=== PATIENT | female | born 1980 | race Caucasian/White ===

== ENCOUNTER 2019-09-28 08:45 | Inpatient (IN) | payer OTHER ==
[2019-09-28] MEDS: ACETAMINOPHEN 325 MG TABLET (FP) PO PRN (10:00)
[2019-09-28] MEDS ORDERED: BETAMET ACET/BETAMET NA PH 30 MG/5 ML VIAL IM ONE (10:08)
[2019-09-28] MEDS ORDERED: MAGNESIUM SULFATE 20GM/500ML - 20 GM/500 ML INFUS.BAG IV SCH (10:15)
[2019-09-28] MEDS ORDERED: MAGNESIUM 4GM/H20 - 4 GM/100 ML IVPB IVPB SCH (10:15)
--- NOTE | 2019-09-28 10:21 | HP ---
Past Medical History - Admission Chief Complaint: contractions. History of Present Illness: patient presents to L&D c/o contractions today. no leaking or bleeding. no MONREAL, visual disturbances, was seen in clinic at [facility] yest and states being followed for elev BP past few weeks. called and spoke with MFM who recalls patients also had proteinuria and platelets in 160s range, received steroids 2 weeks or so ago given history of PTD ( due to preeclampsia?). complete chart not available at this time as clinic building closed for holiday. Nurse stated copy given to pt. yesterday, but pt. states does not have. History Source: Patient Limitations to Obtaining History: Language Barrier - Past Medical History ...: 7 ...Para: 1 ...: 1 ...Spon : 4 ...LMP: 01/21/19 ... Weeks Gestation by Dates: 35.5 ...EDC by Dates: 10/28/19 ...EDC by Sono: 11/04/19 Additional Medical History: pr. was covid pos earlier this preg. retest now. - Past Surgical History Hx Myomectomy: No Hx Transabdominal Cerclage: No - Smoking History Have you smoked in the past 12 months: No - Alcohol/Substance Use Hx Alcohol Use: No History of Substance Use: reports: None Home Medications - Allergies Allergies/Adverse Reactions: Allergies Allergy/AdvReac Type Severity Reaction Status Date / Time almond Allergy Severe Rash Verified 09/28/19 12:12 No Known Drug Allergies Allergy Verified 09/28/19 12:12 - Home Medications Home Medications: Ambulatory Orders Aspirin [ASA -] 81 mg PO DAILY 09/24/19 Folic Acid 1 mg PO DAILY 09/24/19 Pnv No.95/Ferrous Fum/Folic AC [ Vitamin Tablet] 1 each PO DAILY 09/24/19 Progesterone,Micronized [Prometrium] 400 mg PO DAILY 09/24/19 Physical Exam - Maternity Vital Signs: Vital Signs Temperature 98.4 F 09/28/19 09:25 Pulse Rate 84 09/28/19 09:25 Respiratory Rate 18 09/28/19 09:25 Blood Pressure 152/84 09/28/19 09:25 O2 Sat by Pulse Oximetry (%) - Abdominal Exam/OB Number of Fetuses: Single Presentation: Vertex Contractions: Yes Regularity: Irregular Intensity: Moderate Monitor Mode: External Heart Rate (range): 140 Category: I Accelerations: Uniform Decelerations: None - Vaginal Exam/OB Vaginal Bleeding: No Dilatation (cm): 1 Effacement (%): 30 Presentation: Vertex/Position Station: -3 - Physical Exam Edema: No Deep Tendon Reflex Grade: Normal +2 Problem List - Problems (1) uterine contractions in third trimester, antepartum Code(s): O47.03 - FALSE LABOR BEFORE 37 COMPLETED WEEKS OF GEST, THIRD TRI (2) Pre-eclampsia Code(s): O14.90 - UNSPECIFIED PRE-ECLAMPSIA, UNSPECIFIED TRIMESTER (3) Pre-eclampsia during in third trimester, antepartum Code(s): O14.93 - UNSPECIFIED PRE-ECLAMPSIA, THIRD TRIMESTER Assessment/Plan iup at 35 weeks present with contractions. noted to have elevated BP per history and high BP noted in triage here. will admit to L&D, start magnesium sulfate and antihtn meds as needed. will give steroids as pt. uncertain as to history and record not available. close monitoring. labs plan for delivery once stabilized case d/w mfm at [facility] who had information from recollection, but complete chart not available due to holiday. agreed w plan for admission and delivery
[2019-09-28] MEDS ORDERED: LABETALOL HCL 5 MG/1 ML (100MG/20 ML VIAL) IVPUSH ONE (10:23)
[2019-09-28 11:07] LABS: BASO % 0.3 % (0-2.0); EOS % 0.2 % (0-4.5); HEMATOCRIT 41.1 % (32.4-45.2); HEMOGLOBIN 13.7 GM/dL (10.7-15.3); LYMPH % 9.5 % (8-40); MCH 31.4 pg (25.7-33.7); MCHC 33.3 g/dl (32.0-36.0); MEAN CELL VOLUME 94.5 fl (80-96); MEAN PLT VOLUME 11.5 fl (7.5-11.1); PLATELET COUNT 81 K/MM3 (134-434); RBC 4.35 M/mm3 (3.60-5.2); RDW 15.9 % (11.6-15.6); WHITE BLOOD COUNT 10.9 K/mm3 (4.0-10.0)
[2019-09-28 11:15] LABS: INR 0.81 (0.83-1.09); PROTHROMBIN TIME (PATIENT) 9.5 SEC (9.7-13.0)
[2019-09-28 11:18] LABS: ACTIVATED PTT 27.4 SECONDS (25.2-36.5)
[2019-09-28 11:34] VITALS: BMI 33.5
[2019-09-28 11:35] LABS: ALBUMIN 2.2 g/dl (3.4-5.0); BLOOD UREA NITROGEN 16.9 mg/dL (7-18); CREATININE 0.6 mg/dL (0.55-1.3); POTASSIUM 3.6 mmol/L (3.5-5.1); TOT PROT 5.6 g/dl (6.4-8.2); URIC ACID 7.1 mg/dL (2.6-7.2)
[2019-09-28] MEDS: DEXTROSE 5%-LACTATED RINGERS 1,000 ML IV SCH (12:00)
[2019-09-28] MEDS ORDERED: DINOPROSTONE 10 MG VAGINAL SUPPOSITORY VG ONE (12:12)
[2019-09-28 12:26] LABS: EPI CELLS >36 /uL (0-25.1); HYALINE CASTS 13 /uL (0-3.1); URINE APPEARANCE CLEAR; URINE BACTERIA 29 /uL (0-1359); URINE BILIRUBIN NEGATIVE (NEGATIVE); URINE COLOR DK YELLOW; URINE GLUCOSE (UA) NEGATIVE (NEGATIVE); URINE KETONE NEGATIVE (NEGATIVE); URINE LEUK ESTERASE NEGATIVE (NEGATIVE); URINE NITRITE NEGATIVE (NEGATIVE); URINE PROTEIN 3+ (NEGATIVE); URINE RBC 3 /uL (0-23.9); URINE WBC 15 /uL (0-25.8)
[2019-09-28] MEDS ORDERED: LABETALOL HCL 100 MG TABLET (FP) PO SCH (13:00)
[2019-09-28] MEDS ORDERED: LABETALOL HCL 100 MG TABLET (FP) ONE ×2 (13:09→13:19)
--- NOTE | 2019-09-28 15:15 | PN ---
Progress Note (short form) - Note Progress Note: pt. without complaints. resting comfortably vs : BP stable in 140/80s range chest : cta b/l, Nl S1S2 abd: soft, nt, gravid ve: def. cervidil in place ext: no calf tenderness, b/l. DTR 1+/1+ teds and venodynes in place vickers: clear uo : ~100 ml/hr per nurse a/p iup at 35 weeks with severe preeclampsia stable on MgSO4 and po labetalol start prophylactic abx when active labor or rom. cont iol and close monitoring case d/w thinner sprayer sign out to MD rehabilitation liaison. Problem List - Problems (1) uterine contractions in third trimester, antepartum Code(s): O47.03 - FALSE LABOR BEFORE 37 COMPLETED WEEKS OF GEST, THIRD TRI (2) Pre-eclampsia Code(s): O14.90 - UNSPECIFIED PRE-ECLAMPSIA, UNSPECIFIED TRIMESTER (3) Pre-eclampsia during in third trimester, antepartum Code(s): O14.93 - UNSPECIFIED PRE-ECLAMPSIA, THIRD TRIMESTER
[2019-09-28] MEDS ORDERED: LABETALOL HCL 200 MG TABLET (FP) PO PRN (15:16)
[2019-09-28] MEDS: AMPICILLIN - 2 GM in SODIUM CHLORIDE 100 ML IVPB ONE ×3 (15:30→16:00)
[2019-09-28] MEDS ORDERED: AMPICILLIN SODIUM 2 GM VIAL ONE (16:30)
[2019-09-28] MEDS ORDERED: MAGNESIUM SULFATE 20GM/500ML - 20 GM/500 ML INFUS.BAG ONE (18:05)
[2019-09-28] MEDS ORDERED: LABETALOL HCL 200 MG TABLET (FP) ONE (18:05)
[2019-09-28] MEDS ORDERED: CITRIC ACID/SODIUM CITRATE 30 ML UNIT-DOSE CUP PO ONE (19:20)
--- NOTE | 2019-09-28 19:38 | PN ---
Progress Note (short form) - Note Progress Note: Late gestation with severe preeclampsia BP 145-150/85 - 90. Administered labetalol EFM - Baseline 140/min, moderate variability, accelerations, no decelerations Tocos - irritability Pelvic - 1cm/50%/-3 Plan - Late gestation with elevated liver enzymes and blood pressure, low platelets with other indices at high normal levels. Patient counseled on the above and its complications, She verbalizes understanding and agrees to abdominal delivery Prepare for delivery.
[2019-09-28] MEDS ORDERED: ceFAZolin 2 GRAM PREMIX BAG IVPB ONE (19:45)
[2019-09-28] MEDS ORDERED: AMPICILLIN - 1 GM in SODIUM CHLORIDE 100 ML IVPB SCH (19:45)
[2019-09-28] MEDS ORDERED: morphine SULFATE/PF 0.5 MG/ML (2cc Syringe - QUVA) EP ONE (20:56)
[2019-09-28] MEDS ORDERED: ONDANSETRON 4 MG/2 ML VIAL IVPUSH PRN (20:56)
[2019-09-28] MEDS ORDERED: ceFAZolin SODIUM 1 GM VIAL ONE (21:01)
[2019-09-28] MEDS ORDERED: OXYTOCIN 10 UNITS/ML VIAL ONE (21:23)
[2019-09-28] MEDS: OXYTOCIN 20 UNITS in 0.9% NS 20 UNIT/1,000 ML INFUS.BAG IV SCH (21:28)
[2019-09-28] MEDS ORDERED: GLYCOPYRROLATE 0.2 MG/1 ML VIAL ONE (21:34)
[2019-09-28] MEDS ORDERED: ePHEDrine SULFATE 50 MG/1 ML AMPULE ONE ×2 (21:36→23:20)
[2019-09-28] MEDS ORDERED: OXYTOCIN 20 UNITS in 0.9% NS 20 UNIT/1,000 ML INFUS.BAG IV ONE (22:07)
[2019-09-28] MEDS ORDERED: METHYLERGONOVINE MALEATE 0.2 MG/1 ML AMP IM PRN (22:23)
--- NOTE | 2019-09-28 22:38 | OP ---
Operative Note - Note: Operative Date: 09/28/19 Pre-Operative Diagnosis: Severe preeclampsia Operation: Primary Low transverse Delivery Post-Operative Diagnosis: Same as Pre-op Surgeon: Jonny Fong Cash Shortage Investigator: Luis Paredes Anesthesiologist/MASTER SHIP: Max Dueñas Anesthesia: Spinal Estimated Blood Loss (mls): 800 Operative Report Dictated: Yes
--- NOTE | 2019-09-29 01:53 | PN ---
Delivery - Delivery Section: Primary Type of Anesthesia: Spinal Episiotomy/Laceration: None EBL (cc): 800 Delivery, Single - Stages of Labor Date 1st Stage Initiatied: 09/28/19 Date of Delivery: 09/28/19 Time of Delivery: 21:28 Time Placenta Delivered: 21:30 Placenta: Yes: Expressed - Condition of Naval Aircrewman Avionics/Cross Tie Cutter Present: Yes Name: [place] Syed Gender: Male Weight: 2.296 kg Total Hours ROM (Hrs/Mins): 0/1 - 1 Minute Total Score: 9 5 Minutes Total Score: 9 - Feeding Plan Initial Plan: Elected not to breastfeed exclusively throughout hospitalization
[2019-09-29 02:10] LABS: CORD BASE EXCESS -10.6 mmol/L (0-2); CORD HCO3 18.2 mmHg (20-29); CORD PCO2 51.5 mmHg (30-78); CORD pH 7.167 (7.14-7.44)
[2019-09-29] MEDS ORDERED: OXYTOCIN 20 UNITS in 0.9% NS 20 UNIT/1,000 ML INFUS.BAG IV ONE ×3 (02:10→16:42)
[2019-09-29] MEDS ORDERED: MAGNESIUM SULFATE 20GM/500ML - 20 GM/500 ML INFUS.BAG IVPB SCH ×2 (04:03→11:30)
[2019-09-29] MEDS: CEFAZOLIN 1 GM/D5W 1 GM/50 ML BAG IVPB SCH ×2 (07:00→13:30)
[2019-09-29] MEDS ORDERED: ceFAZolin SODIUM 1 GM VIAL ONE ×2 (07:23→14:19)
--- NOTE | 2019-09-29 08:01 | OP ---
DATE OF OPERATION: DATE OF DICTATION: 09/29/2019 PREOPERATIVE DIAGNOSIS: Late gestation with severe preeclampsia. POSTOPERATIVE DIAGNOSIS: Late gestation with severe preeclampsia. OPERATION: Primary low transverse section via Pfannenstiel. SURGEON: Jonny Veloz MD BROOMCORN SORTER: Luis Paredes MD ANESTHESIOLOGIST: ANESTHESIA: Spinal. ESTIMATED BLOOD LOSS: 800 mL. URINE OUTPUT: Clear urine, 300 mL, after the procedure. POSTOPERATIVE CONDITION: Satisfactory. OPERATIVE PROCEDURE: Patient admitted to operating room. Anesthesia obtained without difficulty. Patient placed in the dorsal supine position with a leftward tilt, prepped and draped in normal sterile fashion. A Pfannenstiel incision made and carried down to layer of fascia. Fascia nicked in the midline and extended laterally. Foreign clamp placed on the lower side of the fascia and fascia from the underlying muscle. A similar procedure carried out on the upper fascia which was also from the underlying muscle. The muscle then divided in the midline with identification of the peritoneum. Peritoneum entered sharply with Metzenbaum scissors and the vesicouterine peritoneum identified. Incision then made in the vesicouterine peritoneum and the uterus and baby delivered by the head atraumatically and handed over to the counter intelligence technician. Prior to this cord was clamped and cut. Cord blood and gases obtained. Placenta was then removed and then uterus then cleaned out thoroughly and sutured in 2 layers with hemostasis achieved. Uterus was then placed back in the abdomen and then the abdomen closed in layers with 2-0 Vicryl to the muscle and peritoneum, 1-0 Vicryl to the fascia and 2-0 plain gut to the subcutaneous layer and denis to the skin. Patient tolerated the procedure well. Sponge, lap, instrument counts correct x2. Patient was then admitted to recovery room in stable condition. OPERATIVE FINDINGS: Male in cephalic presentation, scores 9 at 1 minute and 9 at 5 minutes, weight 2296 g. Contracting Specialist was present at delivery and normal uterus, tubes and ovaries. JONNY VELOZ MD [id number]
[2019-09-29] MEDS ORDERED: MAGNESIUM SULFATE 20GM/500ML - 20 GM/500 ML INFUS.BAG ONE (08:56)
[2019-09-29 09:22] LABS: BASO % 0.1 % (0-2.0); HEMATOCRIT 28.6 % (32.4-45.2); HEMOGLOBIN 9.3 GM/dL (10.7-15.3); LYMPH % 8.3 % (8-40); MCHC 32.5 g/dl (32.0-36.0); MEAN CELL VOLUME 95.5 fl (80-96); MEAN PLT VOLUME 11.4 fl (7.5-11.1); MONO % 5.4 % (3.8-10.2); NEUT % 86.2 % (42.8-82.8); PLATELET COUNT 93 K/MM3 (134-434); RDW 16.1 % (11.6-15.6); WHITE BLOOD COUNT 14.9 K/mm3 (4.0-10.0)
[2019-09-29 10:00] LABS: POTASSIUM 4.9 mmol/L (3.5-5.1)
[2019-09-29 10:10] LABS: ALBUMIN 1.6 g/dl (3.4-5.0); BILIRUBIN,TOTAL 0.4 mg/dL (0.2-1); BLOOD UREA NITROGEN 15.4 mg/dL (7-18); CREATININE 0.8 mg/dL (0.55-1.3); TOT PROT 4.2 g/dl (6.4-8.2)
[2019-09-29 10:12] LABS: MAGNESIUM 7.2 mg/dL (1.8-2.4)
[2019-09-29 10:53] LABS: CALCIUM 6.2 mg/dL (8.5-10.1)
--- NOTE | 2019-09-29 11:16 | PN ---
Post Progress Note - Subjective Subjective: Pt feels better, denies MONREAL, epigastric pain, visual disturbances BP 90/48 Pt feels sleepy, MG level 7.3, 7.2 Type of Delivery: Primary C/S Vital Signs: Vital Signs Temperature 99.2 F 09/29/19 06:00 Pulse Rate 76 09/29/19 11:00 Respiratory Rate 18 09/29/19 11:00 Blood Pressure 101/64 09/29/19 11:00 O2 Sat by Pulse Oximetry (%) 99 09/28/19 23:15 Breast Exam: Yes: Soft Uterus: Yes: Fundus Firm, Fundus below umbilicus Incision: Yes: Dressing dry and intact Abdomen/GI: Yes: Abdomen soft Lochia: Yes: Rubra Lochia, amount: Small Extremities: Yes: Calves non-tender Activity: Other - Labs Labs: CBC WBC 14.9 K/mm3 (4.0-10.0) H 09/29/19 08:28 RBC 3.00 M/mm3 (3.60-5.2) L 09/29/19 08:28 Hgb 9.3 GM/dL (10.7-15.3) L 09/29/19 08:28 Hct 28.6 % (32.4-45.2) L D 09/29/19 08:28 MCV 95.5 fl (80-96) 09/29/19 08:28 MCH 31.0 pg (25.7-33.7) 09/29/19 08:28 MCHC 32.5 g/dl (32.0-36.0) 09/29/19 08:28 RDW 16.1 % (11.6-15.6) H 09/29/19 08:28 Plt Count 93 K/MM3 (134-434) L 09/29/19 08:28 MPV 11.4 fl (7.5-11.1) H 09/29/19 08:28 Absolute Neuts (auto) 12.8 K/mm3 (1.5-8.0) H 09/29/19 08:28 Neutrophils % 86.2 % (42.8-82.8) H 09/29/19 08:28 Lymphocytes % 8.3 % (8-40) 09/29/19 08:28 Monocytes % 5.4 % (3.8-10.2) 09/29/19 08:28 Eosinophils % 0.0 % (0-4.5) D 09/29/19 08:28 Basophils % 0.1 % (0-2.0) 09/29/19 08:28 Nucleated RBC % 0 % (0-0) 09/29/19 08:28 Assessment/Plan Decrease Magnesium @ 0.[address], d/c tonight Clear fluid/ regular diet for diner May sit in the chair
--- NOTE | 2019-09-29 13:40 | PN ---
Progress Note (short form) - Note Progress Note: 39F s/p C/S under duramorph spinal. Vital Signs Temp 99.2 F 09/29/19 06:00 Pulse 75 09/29/19 12:00 Resp 18 09/29/19 12:00 BP 124/72 09/29/19 12:00 Pulse Ox 99 09/28/19 23:15 Intake & Output 09/28/19 09/29/19 09/29/19 23:59 11:59 23:59 Intake Total 1690 1662.5 137.5 Output Total 2250 1225 Balance -560 437.5 137.5 Intake: IV 1690 1612.5 137.5 D5-Lr - 1,000 ml @ 75 mls 820 /hr IV ASDIR PATRICIA Rx#: [id number] MAGNESIUM 4GM/H20 - 4 gm 200 25 In 100 ml @ 200 mls/hr IVPB ASDIR PATRICIA Rx#: [id number] MAGNESIUM SULFATE 20GM/ 370 437.5 12.5 500ML - 20 gm In 500 ml @ 50 mls/hr IV ASDIR PATRICIA Rx#:[id number] NORMAL SALINE+20 UNITS 300 1150 125 OXYTOCIN - 20 unit In 1, 000 ml @ 125 mls/hr IV ASDIR PATRICIA Rx#:[id number] IVPB 50 Output: Urine 2250 1225 Craig 2250 1225 Other: Bowel Movement No No Weight 5 lb 1 oz 5 lb 1 oz Length 17 in - No anesthesia complications
[2019-09-29] MEDS ORDERED: BISACODYL 10 MG SUPP.RECT RC PRN (22:23)
[2019-09-29] MEDS: DEXTROSE 5%-LACTATED RINGERS 1,000 ML IV SCH (23:42)
[2019-09-29] MEDS: DOCUSATE SODIUM 100 MG CAPSULE (FP) PO SCH (23:42)
[2019-09-29] MEDS: OXYTOCIN 20 UNITS in 0.9% NS 20 UNIT/1,000 ML INFUS.BAG IV SCH (23:42)
[2019-09-30] MEDS: oxyCODONE HCL 5 MG TABLET PO PRN ×3 (01:06→20:51)
[2019-09-30] MEDS: ACETAMINOPHEN 325 MG TABLET (FP) PO PRN (01:07)
[2019-09-30] MEDS: IBUPROFEN 600 MG TABLET (FP) PO PRN ×3 (01:07→20:51)
[2019-09-30] MEDS: SIMETHICONE 80 MG TAB.CHEW (FP) PO PRN ×3 (01:08→20:51)
--- NOTE | 2019-09-30 09:19 | PN ---
Post Progress Note - Subjective Subjective: Postop day 2 Preeclampsia Type of Delivery: Primary C/S Vital Signs: Vital Signs Temperature 98.2 F 09/29/19 22:30 Pulse Rate 80 09/30/19 05:55 Respiratory Rate 18 09/30/19 05:55 Blood Pressure 113/75 09/30/19 05:55 O2 Sat by Pulse Oximetry (%) 99 09/28/19 23:15 Breast Exam: Yes: Soft Uterus: Yes: Fundus Firm Incision: Yes: Oolitic intact Abdomen/GI: Yes: Abdomen soft Lochia: Yes: Rubra Lochia, amount: Small Extremities: Yes: Calves non-tender Activity: Ambulating - Labs Labs: CBC WBC 14.9 K/mm3 (4.0-10.0) H 09/29/19 08:28 RBC 3.00 M/mm3 (3.60-5.2) L 09/29/19 08:28 Hgb 9.3 GM/dL (10.7-15.3) L 09/29/19 08:28 Hct 28.6 % (32.4-45.2) L D 09/29/19 08:28 MCV 95.5 fl (80-96) 09/29/19 08:28 MCH 31.0 pg (25.7-33.7) 09/29/19 08:28 MCHC 32.5 g/dl (32.0-36.0) 09/29/19 08:28 RDW 16.1 % (11.6-15.6) H 09/29/19 08:28 Plt Count 93 K/MM3 (134-434) L 09/29/19 08:28 MPV 11.4 fl (7.5-11.1) H 09/29/19 08:28 Absolute Neuts (auto) 12.8 K/mm3 (1.5-8.0) H 09/29/19 08:28 Neutrophils % 86.2 % (42.8-82.8) H 09/29/19 08:28 Lymphocytes % 8.3 % (8-40) 09/29/19 08:28 Monocytes % 5.4 % (3.8-10.2) 09/29/19 08:28 Eosinophils % 0.0 % (0-4.5) D 09/29/19 08:28 Basophils % 0.1 % (0-2.0) 09/29/19 08:28 Nucleated RBC % 0 % (0-0) 09/29/19 08:28 Assessment/Plan PO day 2 Preeclampsia BP stable LFT and platelets improving WBC 14.6, HGB 7.8 repeat labs in am dulcolax suppository
[2019-09-30] MEDS: DOCUSATE SODIUM 100 MG CAPSULE (FP) PO SCH (09:35)
[2019-09-30 10:14] LABS: HEMATOCRIT 24.1 % (32.4-45.2); HEMOGLOBIN 7.8 GM/dL (10.7-15.3); MCH 31.3 pg (25.7-33.7); MCHC 32.5 g/dl (32.0-36.0); MEAN CELL VOLUME 96.4 fl (80-96); PLATELET COUNT 128 K/MM3 (134-434); RDW 16.9 % (11.6-15.6); WHITE BLOOD COUNT 14.6 K/mm3 (4.0-10.0)
[2019-09-30 10:30] LABS: ALBUMIN 1.9 g/dl (3.4-5.0); BILIRUBIN,TOTAL 0.2 mg/dL (0.2-1); BLOOD UREA NITROGEN 19.4 mg/dL (7-18); CREATININE 0.9 mg/dL (0.55-1.3); POTASSIUM 4.1 mmol/L (3.5-5.1)
[2019-09-30 10:36] LABS: CALCIUM 6.8 mg/dL (8.5-10.1)
[2019-09-30] MEDS ORDERED: BISACODYL 10 MG SUPP.RECT PR PRN (13:45)
[2019-10-01] MEDS: DOCUSATE SODIUM 100 MG CAPSULE (FP) PO SCH (11:00)
--- NOTE | 2019-10-01 12:09 | PN ---
Post Progress Note Type of Delivery: Primary C/S Vital Signs: Vital Signs Temperature 99.2 F 10/01/19 08:30 Pulse Rate 81 10/01/19 08:30 Respiratory Rate 18 10/01/19 08:30 Blood Pressure 141/86 10/01/19 08:30 O2 Sat by Pulse Oximetry (%) 99 09/28/19 23:15 Breast Exam: Yes: Soft Uterus: Yes: Fundus Firm, Fundus below umbilicus, Non-tender Incision: Yes: Dressing dry and intact Abdomen/GI: Yes: Abdomen soft, Tolerating PO Lochia: Yes: Rubra Lochia, amount: Small Extremities: Yes: Calves non-tender Activity: Ambulating - Labs Labs: CBC WBC 14.6 K/mm3 (4.0-10.0) H 09/30/19 09:44 RBC 2.50 M/mm3 (3.60-5.2) L 09/30/19 09:44 Hgb 7.8 GM/dL (10.7-15.3) L 09/30/19 09:44 Hct 24.1 % (32.4-45.2) L D 09/30/19 09:44 MCV 96.4 fl (80-96) H 09/30/19 09:44 MCH 31.3 pg (25.7-33.7) 09/30/19 09:44 MCHC 32.5 g/dl (32.0-36.0) 09/30/19 09:44 RDW 16.9 % (11.6-15.6) H 09/30/19 09:44 Plt Count 128 K/MM3 (134-434) L D 09/30/19 09:44 MPV 11.0 fl (7.5-11.1) 09/30/19 09:44 Absolute Neuts (auto) 12.8 K/mm3 (1.5-8.0) H 09/29/19 08:28 Neutrophils % 86.2 % (42.8-82.8) H 09/29/19 08:28 Lymphocytes % 8.3 % (8-40) 09/29/19 08:28 Monocytes % 5.4 % (3.8-10.2) 09/29/19 08:28 Eosinophils % 0.0 % (0-4.5) D 09/29/19 08:28 Basophils % 0.1 % (0-2.0) 09/29/19 08:28 Nucleated RBC % 0 % (0-0) 09/29/19 08:28 Assessment/Plan S/P delivery, pod # 3, reports passing flatus BP 140-145/85 - 93 and appears uptrending Labetalol prescribed and will observe vital signs today. Continue management
[2019-10-01] MEDS: LABETALOL HCL 100 MG TABLET (FP) PO SCH ×2 (12:18→21:03)
[2019-10-01] MEDS: SIMETHICONE 80 MG TAB.CHEW (FP) PO PRN (21:03)
[2019-10-01] MEDS: oxyCODONE HCL 5 MG TABLET PO PRN (21:04)
[2019-10-01] MEDS: ACETAMINOPHEN 325 MG TABLET (FP) PO PRN (21:05)
[2019-10-02] MEDS: IBUPROFEN 600 MG TABLET (FP) PO PRN ×4 (03:51→21:41)
[2019-10-02] MEDS: ACETAMINOPHEN 325 MG TABLET (FP) PO PRN ×2 (03:51→21:41)
[2019-10-02] MEDS: SIMETHICONE 80 MG TAB.CHEW (FP) PO PRN ×3 (08:21→21:42)
[2019-10-02] MEDS: DOCUSATE SODIUM 100 MG CAPSULE (FP) PO SCH (10:04)
[2019-10-02] MEDS: LABETALOL HCL 100 MG TABLET (FP) PO SCH ×2 (10:05→21:41)
--- NOTE | 2019-10-02 15:33 | DS ---
Physical Exam-WOOL HANDLER Vital Signs: Vital Signs Temperature 98.0 F 10/02/19 14:00 Pulse Rate 97 H 10/02/19 14:00 Respiratory Rate 18 10/02/19 14:00 Blood Pressure 130/87 10/02/19 14:00 O2 Sat by Pulse Oximetry (%) 98 10/02/19 09:00 Labs: CBC, BMP 09/30/19 09:44 09/30/19 09:44 Delivery - Delivery Section: Primary Type of Anesthesia: Spinal Episiotomy/Laceration: None EBL (cc): 800 Delivery, Single - Stages of Labor Date 1st Stage Initiatied: 09/28/19 Date of Delivery: 09/28/19 Time of Delivery: 21:28 Time Placenta Delivered: 21:30 Placenta: Yes: Expressed - Condition of Messenger Floorperson/Hse Advisor Present: Yes Name: [place] Syed Infant Gender: Male Weight: 2.296 kg Total Hours ROM (Hrs/Mins): 0/1 - 1 Minute Total Score: 9 5 Minutes Total Score: 9 - Feeding Plan Initial Plan: Elected not to breastfeed exclusively throughout hospitalization Remarks - Remarks Remarks: pt. without complaints. no MONREAL, visual disturbances or epigastric pain. tolerating diet, ambulating well. no cp, sob, dizziness. vs BP stable. af abd: soft, nt, nd inc: c/d/i w denis ve: min lochia ext: no calf tenderness b/l a/p pt stable pod3 s/p for severe preeclampsia remote [facility]. BP now in stable range post op on labetalol asymptomatic anemia plan for d/c to home today on antihtn, pain meds and hematinics f/u clinic 3 days for staple removal and BP check Discharge Summary Problems reviewed: Yes Reason For Visit: PRE-ECLAMPSIA ADMIT Current Active Problems Pre-eclampsia (Acute) Pre-eclampsia during in third trimester, antepartum (Acute) uterine contractions in third trimester, antepartum (Acute) Procedures: Principal: section Hospital Course: admitted w severe preeclampsia iol and mgso4 initiated due to remote from delivery after no progress BP elev PP, controlled on meds to cont at home asymptomatic anemia rx hematinics f/u clinic 3 days Condition: Good - Instructions Diet, Activity, Other Instructions: regular diet, activity as tolerated but avoid strenuous activity , heavy lifting or intercourse. wash wound gently with soap and water daily. rinse well, pat dry and leave open to air. rtc 3 days (10/04) for staple removal and BP check if develop MONREAL , visual disturbances or abdominal pain, return to hospital immediately Disposition: HOME - Home Medications Comprehensive Discharge Medication List: Ambulatory Orders Aspirin [ASA -] 81 mg PO DAILY 09/24/19 Folic Acid 1 mg PO DAILY 09/24/19 Pnv No.95/Ferrous Fum/Folic AC [ Vitamin Tablet] 1 each PO DAILY 09/24/19 Progesterone,Micronized [Prometrium] 400 mg PO DAILY 09/24/19
[2019-10-02 18:24] LABS: BLOOD UREA NITROGEN 14.1 mg/dL (7-18); CALCIUM 8.3 mg/dL (8.5-10.1); CREATININE 0.6 mg/dL (0.55-1.3); POTASSIUM 4.6 mmol/L (3.5-5.1)
[2019-10-03] MEDS: ACETAMINOPHEN 325 MG TABLET (FP) PO PRN (06:19)
[2019-10-03] MEDS: IBUPROFEN 600 MG TABLET (FP) PO PRN (06:19)
[2019-10-03 09:21] VITALS: BP 137/87; PULSE 94; TEMP 98.7
[2019-10-03] MEDS: LABETALOL HCL 100 MG TABLET (FP) PO SCH (09:21)
[2019-10-03] MEDS: DOCUSATE SODIUM 100 MG CAPSULE (FP) PO SCH (09:22)
--- NOTE | 2019-10-05 12:47 | PATH ---
Surgical Pathology Report Patient Name: OCTAVIA SILVA Med. Rec. #: [id number] /Age/Gender: 1980 (Age: 39) / F Account: [id number] Location: [facility] OBS/RELATIONSHIP MANAGEMENT LEAD Taken: 09/28/2019 Received: 10/01/2019 Reported: 10/05/2019 Physicians: Jonny Tafoya M.D. Specimen(s) Received PLACENTA Clinical History , severe preeclampsia Primary Final Diagnosis PLACENTA: THIRD TRIMESTER PLACENTA WITH INCREASED SYNCYTIAL KNOTS, INTERVILLOUS FIBRIN DEPOSITION, AND DECIDUAL VASCULOPATHY (FOCAL LACK OF PHYSIOLOGIC CONVERSION), SEE COMMENT. TRIVASCULAR CORD. MEMBRANES WITH NO DIAGNOSTIC ABNORMALITIES. Note: Although non-specific, these findings have been described in preeclampsia, placentas of women with lupus erythematosus and scleroderma, the antiphospholipid antibody syndrome, and small for gestational infants, with or without maternal hypertension. Clinical correlation is recommended. Electronically Signed Heena Roth M.D. Gross Description The specimen is received fresh labeled placenta and is a 326 gram, 15.5 x 12.5 x 2.8 cm. placenta with attached membranes and umbilical cord. The attached membranes are orr, translucent with focal opacities and insert marginally. The umbilical cord measures 7 cm. in length and averages 1.2 cm. in diameter. The cord inserts eccentrically, 3.5 cm. to the nearest margin. No true knots or strictures are identified. Cut surface of the umbilical cord reveals 3 vessels. The surface is rush-blue with minimal fibrin deposition and appropriate caliber vessels. The maternal surface is red-brown with focal defects. Sectioning reveals red-brown, spongy parenchyma. No lesions are identified. Housing Manager sections are submitted in three cassettes as follows: 1- membrane rolls and umbilical cord; 2-3- full thickness sections of placenta. 10/02/2019 saudi10/02/2019
== END 2019-10-03 11:45 | disposition home or self-care (01) | DRG 540 ==
LOC: JDEL 08:45 → JLDR 10:00 → J3W 09-29 22:19
PROVIDERS: ADMIT Obstetrics & Gynecology; ATTEND Obstetrics & Gynecology
PROC: 10D00Z1 Extraction of Products of Conception, Low, Open Approach (ICD-10-PCS; principal; 2019-09-28)
PROC: 3E0P7VZ Introduction of Hormone into Female Reproductive, Via Natural or Artificial Opening (ICD-10-PCS; 2019-09-28)
DX: O14.14 Severe pre-eclampsia complicating childbirth (principal); O47.03 False labor before 37 completed weeks of gestation, third trimester; Z3A.35 35 weeks gestation of pregnancy; Z37.0 Single live birth; Z86.19 Personal history of other infectious and parasitic diseases
CPT/HCPCS: 36415; 36600; 76819-TC; 80048; 80053; 81003; 82803; 83735; 84550; 85025; 85027; 85384; 85610; 85730; 86780; 86850; 86900; 86901; 88307-TC; 96372; U0003